=== PATIENT | male | born 1990 | race Caucasian/White ===

== ENCOUNTER 2018-01-25 19:53 | Emergency (ER) | payer OTHER ==
[~2018-01-25] VITALS: Ht 172.7 cm; Wt 63.5 kg
[2018-01-25] MEDS ORDERED: Naprosyn500 MG PO (20:57)
[2018-01-25] MEDS ORDERED: Cleocin HCl300 MG PO (20:57)
== END 2018-01-25 21:06 | disposition home or self-care (01) ==
LOC: ER 19:53
DX: K04.7 Periapical abscess without sinus (principal); F17.290 Nicotine dependence, other tobacco product, uncomplicated
CPT/HCPCS: 99282